=== PATIENT | female | born 1960 | race Hispanic/Latino ===

== ENCOUNTER 2019-08-05 12:50 | Emergency (ER) | payer BC, OTHER ==
[~2019-08-05] VITALS: Ht 157.5 cm; Wt 58.1 kg
--- NOTE | 2019-08-05 13:10 | NUR ---
TRAINING DEVELOPMENT DIRECTOR CALLED.
--- NOTE | 2019-08-05 13:58 | NUR ---
ULTRASOUND HERE FOR SCAN
--- NOTE | 2019-08-05 14:37 | NUR ---
FINISHED VENOUS DOPPLER
--- NOTE | 2019-08-05 14:52 | Diagnostic Imaging Report ---
EXAMINATION :Left lower extremity venous Doppler exam. CLINICAL INDICATION: Swelling COMPARISON: None DISCUSSION: Wong scale, color Doppler and spectral waveform analysis of the left lower extremity deep venous system was performed. The left common femoral, superficial femoral and popliteal veins are compressible and demonstrate normal spontaneous phasic waveforms and normal response to augmentation. No filling defects are seen. IMPRESSION: No deep venous thrombosis above the left calf. Signed by: Dr. Candelario Kaiser M.D. on 08/05/2019 2:49 PM
== END 2019-08-05 15:30 | disposition home or self-care (01) ==
LOC: FSED 12:50
DX: M25.562 Pain in left knee (principal); M79.662 Pain in left lower leg; I80.02 Phlebitis and thrombophlebitis of superficial vessels of left lower extremity
CPT/HCPCS: 93971; 99283